=== PATIENT | female | born 1950 | race Caucasian/White ===

== ENCOUNTER 2023-09-05 00:16 | Emergency (ER) | payer MEDICARE, OTHER ==
[2023-09-05] MEDS ORDERED: SODIUM CHLORIDE 0.9% 1,000 ML IV STA (00:47)
[2023-09-05] MEDS ORDERED: ONDANSETRON ODT 4 MG TABLET TL STA (00:47)
[2023-09-05 01:01] LABS: BASOPHILS # (AUTO) 0.1 10^3/uL (0.0-0.1); BASOPHILS % (AUTO) 0.5 %; EOSINOPHILS % (AUTO) 0.1 %; HCT - HEMATOCRIT 42.9 % (37.0-47.0); HGB - HEMOGLOBIN 14.8 g/dL (12.0-16.0); LYMPHOCYTES % (AUTO) 11.1 %; MEAN CORPUSCULAR HEMOGLOBIN 31.8 pg (27.0-31.0); MEAN CORPUSCULAR HGB CONC 34.5 g/dL (32.0-36.0); MEAN CORPUSCULAR VOLUME 92.3 fL (81.0-99.0); MONOCYTES # (AUTO) 0.9 10^3/uL (0.0-1.0); MONOCYTES % (AUTO) 4.9 %; NEUTROPHILS # (AUTO) 15.3 10^3/uL (1.5-6.6); PLT - PLATELET COUNT 270 10^3/uL (130-450); RED BLOOD COUNT 4.65 10^6/uL (4.20-5.40); RED CELL DISTRIBUTION WIDTH 11.5 % (12.0-15.0); WHITE BLOOD COUNT 18.4 x10^3/uL (4.8-10.8)
[2023-09-05] MEDS: fentaNYL 100 MCG/2 ML VIAL IVP PRN ×2 (01:02→03:33)
--- NOTE | 2023-09-05 01:05 | XRAY Report ---
PROCEDURE: Chest 1 View X-Ray INDICATIONS: Chest pain TECHNIQUE: One view of the chest was acquired. COMPARISON: None. FINDINGS: Surgical changes and devices: None. Lungs and pleura: No pleural effusions or pneumothorax. Lungs are clear. Mediastinum: Mediastinal contours appear normal. Heart size is mildly enlarged. Bones and chest wall: No suspicious bony lesions. Overlying soft tissues appear unremarkable. IMPRESSION: No acute cardiopulmonary process. Reviewed by: Indu Oglesby MD on 09/05/2023 1:03 AM [facility] Approved by: Indu Oglesby MD on 09/05/2023 1:03 AM [facility] Station ID: [id number]
[2023-09-05 01:24] LABS: ALBUMIN 5.2 g/dL (3.2-5.5); BILIRUBIN,TOTAL 1.1 mg/dL (0.2-1.0); CALCIUM 10.1 mg/dL (8.5-10.3); CREATININE 0.8 mg/dL (0.6-1.3); POTASSIUM 3.7 mmol/L (3.5-4.5); TOTAL PROTEIN 7.8 g/dL (6.4-8.9)
[2023-09-05 02:07] LABS: TROPONIN I HIGH SENSITIVITY 4.7 ng/L (2.3-14.8)
[2023-09-05 02:45] LABS: BILIRUBIN,URINE NEGATIVE (NEGATIVE); GLUCOSE, URINE (UA) NEGATIVE (NEGATIVE); KETONES,URINE (UA) 15 mg/dL (NEGATIVE); LEUKOCYTE ESTERASE, URINE NEGATIVE (NEGATIVE); NITRITE,URINE NEGATIVE (NEGATIVE); OCCULT BLOOD,URINE NEGATIVE (NEGATIVE); PROTEIN,URINE NEGATIVE (NEGATIVE); UROBILINOGEN,URINE 0.2 (NORMAL) E.U./dL (NORMAL)
[2023-09-05 02:48] LABS: CLARITY,URINE CLEAR (CLEAR)
[2023-09-05] MEDS ORDERED: ONDANSETRON 4 MG/2 ML VIAL IVP STA (02:54)
--- NOTE | 2023-09-05 03:02 | ED Physician Documentation ---
History of Present Illness - Stated complaint Stated Complaint: NAUSEA/ABD PX - Chief complaint Chief Complaint: Cardiac - Additonal information Additional information: Patient 73-year-old female presenting to the emergency department with chest and epigastric pain. Began acutely at approximately noon today. Denies episodes of similar pain. Denies chronic medical issues. Pain associated with nausea without vomiting. Attempted to relieve pain at home by taking Pepto-Bismol and baking soda without relief. Past surgical history positive for hysterectomy. Reports allergy to IV contrast. Does not take prescription medications. Review of Systems Constitutional: denies: Fever Eyes: denies: Loss of vision Ears: denies: Loss of hearing Nose: denies: Rhinorrhea / runny nose Throat: denies: Dental pain / toothache Cardiac: reports: Chest pain / pressure. denies: Palpitations, Pedal edema Respiratory: denies: Dyspnea GI: reports: Abdominal Pain, Nausea, Vomiting. 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 - Allergies Allergies/Adverse Reactions: Allergies Allergy/AdvReac Type Severity Reaction Status Date / Time Anesthetics - Amide Type - AdvReac Unknown Verified 09/05/23 00:20 Select A [Anesthetics - Amide Type] - Social History Does the pt smoke?: No Smoking Status: Never smoker Does the pt drink ETOH?: No - Immunizations Immunizations: No immun - POLST Patient has POLST: No PD ED PE NORMAL - Vitals Vital signs reviewed: Yes (wnl) - General General: Alert and oriented X 3, Well developed/nourished - HEENT HEENT: Atraumatic - Neck Neck: Supple, no meningeal sign - Cardiac Cardiac: RRR - Respiratory Respiratory: No respiratory distress - Abdomen Abdomen: Normal bowel sounds, Other (Epigastric tenderness without guarding, rebound, rigidity.) - Female Female : Deferred - Rectal Rectal: Deferred - Back Back: No CVA TTP - Derm Derm: Normal color - Extremities Extremities: No deformity - Neuro Neuro: Alert and oriented X 3, manager 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 2-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, No motor deficit, No sensory deficit, Normal speech Results - Vitals Vitals: Vital Signs - 24 hr 09/05/23 09/05/23 09/05/23 00:20 00:52 01:22 Temperature 36.5 C Heart Rate 64 77 70 Respiratory 16 17 17 Rate Blood Pressure 170/88 H 186/95 H O2 Saturation 94 98 95 09/05/23 09/05/23 09/05/23 02:00 03:00 03:30 Temperature Heart Rate 72 69 71 Respiratory 17 13 Rate Blood Pressure 178/99 H 181/82 H O2 Saturation 95 99 95 09/05/23 09/05/23 09/05/23 04:00 04:30 05:00 Temperature Heart Rate 66 72 66 Respiratory 16 13 13 Rate Blood Pressure 178/77 H 193/94 H 158/95 H O2 Saturation 98 97 94 09/05/23 09/05/23 09/05/23 05:30 06:00 06:30 Temperature Heart Rate 74 69 69 Respiratory 14 15 14 Rate Blood Pressure 163/86 H 157/92 H 164/84 H O2 Saturation 97 95 95 Oxygen O2 Source Room air - EKG (time done) 0037 EKG releavant findings:: EKG personally interpreted by author of this note. Relevant findings are: Sinus rhythm with rate 60 bpm. Normal axis. Normal RI, QRS, QTc intervals. No ST segment elevations or T wave inversions. - Labs Labs: Laboratory Tests 09/05/23 09/05/23 09/05/23 00:50 00:50 00:50 WBC 18.4 H RBC 4.65 Hgb 14.8 Hct 42.9 MCV 92.3 MCH 31.8 H MCHC 34.5 RDW 11.5 L Plt Count 270 MPV 10.0 Neut # (Auto) 15.3 H Lymph # (Auto) 2.0 Cocke # (Auto) 0.9 Eos # (Auto) 0.0 Baso # (Auto) 0.1 Absolute Nucleated RBC 0.00 Nucleated RBC % 0.0 Sodium 136 Potassium 3.7 Chloride 96 L Carbon Dioxide 29 Anion Gap 11.0 BUN 13 Creatinine 0.8 Estimated GFR (MDRD) 71 L Glucose 137 H Lactic Acid 1.7 Calcium 10.1 Total Bilirubin 1.1 H AST 18 ALT 21 Alkaline Phosphatase 96 Troponin I High Sens 4.7 Total Protein 7.8 Albumin 5.2 Globulin 2.6 Albumin/Globulin Ratio 2.0 Lipase 17 Urine Color Urine Clarity Urine pH Ur Specific [place] Urine Protein Urine Glucose (UA) Urine Ketones Urine Occult Blood Urine Nitrite Urine Bilirubin Urine Urobilinogen Ur Leukocyte Esterase Ur Microscopic Review 09/05/23 02:28 WBC RBC Hgb Hct MCV MCH MCHC RDW Plt Count MPV Neut # (Auto) Lymph # (Auto) [place] # (Auto) Eos # (Auto) Baso # (Auto) Absolute Nucleated RBC Nucleated RBC % Sodium Potassium Chloride Carbon Dioxide Anion Gap BUN Creatinine Estimated GFR (MDRD) Glucose Lactic Acid Calcium Total Bilirubin AST ALT Alkaline Phosphatase Troponin I High Sens Total Protein Albumin Globulin Albumin/Globulin Ratio Lipase Urine Color YELLOW Urine Clarity CLEAR Urine pH 7.0 Ur Specific [place] 1.015 Urine Protein NEGATIVE Urine Glucose (UA) NEGATIVE Urine Ketones 15 H Urine Occult Blood NEGATIVE Urine Nitrite NEGATIVE Urine Bilirubin NEGATIVE Urine Urobilinogen 0.2 (NORMAL) Ur Leukocyte Esterase NEGATIVE Ur Microscopic Review NOT INDICATED PD Medical Decision Making - ED course Complexity details: reviewed old records, reviewed results, re-evaluated patient, considered differential, d/w patient, d/w family, d/w sales consultant ED course: Patient 73-year-old female presenting to the emergency department with chief complaint abdominal pain. Afebrile, hemodynamically stable on arrival to the emergency department but demonstrating signs of great distress, actively retching with a significant amount of epigastric tenderness. No guarding, rebound, rigidity that would be suggestive of peritonitis. EKG is on above was negative for indications of acute cardiac ischemia or dysrh ythmia. Patient's high-sensitivity troponin was negative. Her lab work did demonstrate a significant leukocytosis with bandemia. No elevation in LFTs or alkaline phosphatase that would be suggestive of biliary obstruction however patient did have a very minimal elevation in total bilirubin of uncertain clinical significance. She was given multiple doses of medication for pain control here in the emergency department. Pain control was achieved after transitioning to hydromorphone. She was similarly given medication for nausea and IV hydration with some significant improvement in her symptoms. Patient did endorse for an iodine/contrast allergy and a noncontrast CT of her abdomen and pelvis was obtained. This demonstrated a distended gallbladder with multiple biliary stones. Given her white count, presenting symptoms as well as the findings of the CT scan I did order for Rocephin and Flagyl. She was monitored carefully. At this time I ordered for right upper quadrant ultrasonography. Case discussed with general surgery, Dr. Fleming who will review the ultrasound as it becomes available later on in the morning. Patient was maintained n.p.o. throughout her time in the emergency department. At this time I will be signing her out to the oncoming physician, please see their documentation for further detail. Departure - Departure Forms: PCP List
[2023-09-05] MEDS ORDERED: metroNIDAZOLE 500 MG/100 ML 500 MG/100 ML BAG IV ONE (03:21)
[2023-09-05] MEDS ORDERED: cefTRIAXone 1 GM in SODIUM CHLORIDE 0.9% MINIBAG 100 ML IV STA (03:21)
[2023-09-05] MEDS ORDERED: cefTRIAXone 1 GM VIAL ONE (04:17)
[2023-09-05] MEDS ORDERED: HYDROmorphone 1 MG/ML CARPUJECT IVP STA (04:22)
--- NOTE | 2023-09-05 08:46 | Ultrasound Report ---
PROCEDURE: Abdomen Limited INDICATIONS: RUQ/Epigastric pain TECHNIQUE: Real-time focused scanning was performed of the abdomen, with image documentation. COMPARISONS: None. FINDINGS: Liver: Liver is normal in size and heterogeneous in echotexture. Gallbladder: Multiple hyperechoic foci are noted in dependent portion of gallbladder lumen with acous tic shadowing. The largest stone measures 8 x 7 x 7 mm in size. No gallbladder wall thickening or per icholecystic fluid. No sonographic Collier's sign. Biliary ducts: Intrahepatic bile ducts are non-dilated. Extrahepatic bile duct caliber measures 4 m m. Normal is 6-7 mm or less in diameter, or 10 mm or less post-cholecystectomy. Pancreas: Visualized portions of the pancreas are sonographically normal. Right kidney: Normal in size and echotexture. Right kidney measures 9.9 cm long. No hydronephrosis o r nephrolithiasis. No solid masses. No complex renal cystic lesions which require follow-up. Aorta: Visualized aorta is normal in caliber at less than 3 cm. IVC: Intrahepatic inferior vena cava is patent. Miscellaneous: No free abdominal fluid. IMPRESSION: 1. Cholelithiasis without sonographic evidence of acute cholecystitis. No biliary ductal dilatation. 2. Heterogeneous liver parenchymal echotexture suggestive of mild hepatic steatosis. No discrete hepa tic lesion. Reviewed by: Socrates Orozco MD on 09/05/2023 8:45 AM PST Approved by: Socrates Orozco MD on 09/05/2023 8:45 AM PST Station ID: [id number]
--- NOTE | 2023-09-05 08:49 | CT Report ---
PROCEDURE: ABDOMEN/PELVIS WO INDICATIONS: Epigastric abd pain. Contrast Allergy TECHNIQUE: A CT scan of the abdomen and pelvis was performed without the use of intravenous contrast. Images we re recorded and evaluated at appropriate window settings. Reformats: coronal and sagittal. For radiat ion dose reduction, the following was used: automated exposure control, adjustment of mA and/or kV ac cording to patient size. COMPARISON: None. FINDINGS: Image quality: Excellent. Lung bases and heart: Unremarkable. Liver: No solid mass. Gallbladder and biliary tree: Calcified stones are noted within gallbladder lumen. Gallbladder is mil dly distended. No significant gallbladder wall thickening or pericholecystic fluid. No intra or extra hepatic biliary ductal dilatation. Spleen: No splenomegaly. Pancreas: No pancreatic ductal dilation. Adrenals: No adrenal nodule. Kidneys and ureters: No hydronephrosis. No renal cystic lesion which requires follow up. No solid mas s. Simple left renal cyst is noted and measures 3.7 x 3.9 cm in size. Bowel and peritoneum: No bowel distension. No pathologic free fluid. No peritoneal free air or absces s collection. Lymph nodes: No central or retroperitoneal adenopathy. Vessels: No infrarenal aortic aneurysm. PELVIS Reproductive organs: Unremarkable. Bladder: No wall thickness, accounting for underdistention. Pelvic lymph nodes: No pelvic adenopathy by size criteria. Bones: No aggressive osseous abnormality. Other: No significant ventral or inguinal hernia. IMPRESSION: 1. Cholelithiasis with mild gallbladder wall distention. No CT evidence of acute cholecystitis. No bi liary ductal dilatation. If indicated, ultrasound of abdomen can be done for further evaluation of th e gallbladder. 2. Left renal cysts as above. No renal stones or hydronephrosis. 3. No bowel obstruction or abnormal bowel wall thickening. No free fluid or free air. No discrepancies from pulmonary region. Reviewed by: Socrates Orozco MD on 09/05/2023 8:47 AM PST Approved by: Socrates Orozco MD on 09/05/2023 8:47 AM PST Station ID: [id number]
--- NOTE | 2023-09-05 11:58 | CONSULTATION NOTE ---
Referring Provider Consult Date: 09/05/23 Chief Complaint - Chief Complaint Chief Complaint: few days of not feeling well followed by severe epigastric pain History of Present Illness - History Obtained From Records Reviewed: yes History obtained from: pt Exam Limitations: none - History of Present Illness HPI Comment/Other: generalized not feeling well for a few days. late last pm developed severe epigastric pain going to the back. felt like a ball. never had similar pain. was throwing up at the time. symptoms have since completely resolved and she feels well. she is and feels up to going home. 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 - POLST Patient has POLST: No Meds/Allgy - Allergies Allergies/Adverse Reactions: Allergies Allergy/AdvReac Type Severity Reaction Status Date / Time Anesthetics - Amide Type - AdvReac Unknown Verified 09/05/23 00:20 Select A [Anesthetics - Amide Type] Review of Systems - Other Findings Other Findings: 10 pt ros as above otherwise unremarkable Exam - Vital Signs Reviewed Vital Signs: Yes Vital Signs: Vital Signs x48h Pulse Resp BP Pulse Ox 09/05/23 07:00 68 14 146/97 H 94 09/05/23 06:30 69 14 164/84 H 95 09/05/23 06:00 69 15 157/92 H 95 09/05/23 05:30 74 14 163/86 H 97 09/05/23 05:00 66 13 158/95 H 94 09/05/23 04:30 72 13 193/94 H 97 09/05/23 04:00 66 16 178/77 H 98 - Physical Exam General Appearance: positive: No acute distress, Alert Eyes Bilateral: positive: PERRL, EOMI, No scleral icterus ENT: positive: No signs of dehydration Neck: positive: No JVD, Trachea midline Respiratory: positive: No respiratory distress Cardiovascular: positive: Regular rate & rhythm Abdomen: positive: Non-tender, No distention Neurologic/Psychiatric: positive: Oriented x3 Conclusion and Plan - Lab Results Laboratory Results 09/05/23 02:28: Urine Color YELLOW, Urine Clarity CLEAR, Urine pH 7.0, Ur Specific [place] 1.015, Urine Protein NEGATIVE, Urine Glucose (UA) NEGATIVE, Urine Ketones 15 H, Urine Occult Blood NEGATIVE, Urine Nitrite NEGATIVE, Urine Bilirubin NEGATIVE, Urine Urobilinogen 0.2 (NORMAL), Ur Leukocyte Esterase NEGATIVE, Ur Microscopic Review NOT INDICATED 09/05/23 00:50: Lactic Acid 1.7 09/05/23 00:50: Sodium 136, Potassium 3.7, Chloride 96 L, Carbon Dioxide 29, Anion Gap 11.0, BUN 13, Creatinine 0.8, Estimated GFR (MDRD) 71 L, Glucose 137 H, Calcium 10.1, Total Bilirubin 1.1 H, AST 18, ALT 21, Alkaline Phosphatase 96, Troponin I High Sens 4.7, Total Protein 7.8, Albumin 5.2, Globulin 2.6, Albumin/Globulin Ratio 2.0, Lipase 17 09/05/23 00:50: WBC 18.4 H, RBC 4.65, Hgb 14.8, Hct 42.9, MCV 92.3, MCH 31.8 H, MCHC 34.5, RDW 11.5 L, Plt Count 270, MPV 10.0, Neut # (Auto) 15.3 H, Lymph # (Auto) 2.0, [place] # (Auto) 0.9, Eos # (Auto) 0.0, Baso # (Auto) 0.1, Absolute Nucleated RBC 0.00, Nucleated RBC % 0.0 - Diagnostic Imaging Results Diagnostic Imaging Results: positive: Read independently (gallstone obstructing the gallbladder at time of ct. no gallbladder obstruction on later ultrasound. likely gallstone floated upwards out of the neck of the gallbladder. no significant inflammation gallbladder on ct or US) - Diagnosis Diagnosis: gallstones and severe attack gallbladder pain - Consultation Note Consultation Note: symptoms resolved. recommend clears and if tolerating well home on low fat diet follow up in surgery office next available [phone] antibiotics probably not necessary. she may call the office if having pain, fevers, nausea, etc
--- NOTE | 2023-09-05 12:39 | ED Physician Documentation ---
ED Addendum - Addendum Addendum: 09/05/23 12:25 73-year-old female with right upper quadrant abdominal pain evaluated by Dr. Stout and Dr. Fleming. 09/05/23 12:39 CT ab/pel with: Impression: Cholelithiasis with mild gallbladder wall distention. No CT evidence of acute cholecystitis. No biliary ductal dilation. If indicated, ultrasound can be done for further evaluation of the gallbladder. Left renal cysts are as above. No renal stones or hydronephrosis. No bowel obstruction or abdominal wall thickening. No free fluid or free air no discrepancies from preliminary read GB ultrasound: Impression: 1. Cholelithiasis without sonographic evidence of acute cholecystitis. No biliary ductal dilation. Heterogeneous liver parenchyma echotexture suggestive of mild hepatic steatosis. No discrete hepatic lesion. 09/05/23 19:17 09/05/23 19:18 09/05/23 19:19 Dr. Fleming did evaluate the patient and he will follow-up with the patient in his clinic for elective surgery. Dr. Fleming indicated addition of antibiotics was likely not necessary. Patient is comfortable with her disposition and she is encouraged to return to the emergency department if she has persistence of symptoms or develops new symptoms. She is encouraged to use a fat-free diet and to follow-up with the surgeon as indicated. Impression: Cholelithiasis without acute cholecystitis and without obstruction or gangrene. Plan: Patient will follow-up with Dr. Fleming as an outpatient.
[2023-09-05 12:56] VITALS: BP 140/72; O2SAT 96
== END 2023-09-05 13:01 | disposition home or self-care (01) ==
LOC: ED 00:16
DX: K80.20 Calculus of gallbladder without cholecystitis without obstruction (principal)
CPT/HCPCS: 36415; 71045; 74176; 76705; 80053; 81003; 83605; 83690; 84484; 85025; 93005; 96365; 96367; 96375; 99285; J1170; Q0162; 81001

== ENCOUNTER 2024-03-17 10:52 | Emergency (ER) | payer MEDICARE, OTHER ==
[2024-03-17 11:08] VITALS: BP 155/73; O2SAT 97
--- NOTE | 2024-03-17 12:09 | ED Physician Documentation ---
PD HPI UPPER EXT INJURY - Stated complaint Stated Complaint: LT HAND FINGER LAC - Chief complaint Chief Complaint: Laceration - History obtained from History obtained from: Patient - Additonal information Additional information: Lxtjg-[id number] woman with unknown tetanus status cut her left middle finger with a knife at home just prior to arrival. Of note she has a history of anesthetic allergy, but says she has had lidocaine at the dentist office without issue. 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 - Present Medications Home Medications: Ambulatory Orders Medication Instructions Recorded Confirmed Bacitracin Zinc Oint 1 applic TOP BID #1 each 03/17/24 HYDROcod/ACETAM 5/325 [Hines 5/325] 1 - 2 tab PO Q6H PRN #10 tablet 03/17/24 - Allergies Allergies/Adverse Reactions: Allergies Allergy/AdvReac Type Severity Reaction Status Date / Time Anesthetics - Amide Type - AdvReac Unknown Verified 03/17/24 11:04 Select A [Anesthetics - Amide Type] - Social History Does the pt smoke?: No Smoking Status: Never smoker Does the pt drink ETOH?: No - Immunizations Immunizations: No immun - POLST Patient has POLST: No PD ED PE NORMAL - Vitals Vital signs reviewed: Yes - General General: Alert and oriented X 3, No acute distress - Extremities Extremities: Other (On the radial side of the tip of the left middle finger there is a near complete amputation measuring 2 cm involving the distal lateral nail with a flap keeping it attached distally.) - Neuro Neuro: Alert and oriented X 3, Normal speech Results - Vitals Vitals: Vital Signs - 24 hr 03/17/24 11:01 Temperature 36.5 C Heart Rate 74 Respiratory 18 Rate Blood Pressure 155/73 H O2 Saturation 97 Oxygen O2 Source Room air Procedures - Laceration (location) L middle finger Length in cm: 2 Wound type: Into subcut fat, Clean Neurovascular status: Sensory intact Anesthesia: Lidocaine 1%, With bicarb Wound preparation: Irrigated copiously NS, Extensive undermining (The involved part of the nail was removed using blunt dissection) Skin layer closure: Nylon, Interrupted, Size #-0 - enter number (5-0), Sutures - enter # (10) Other: Patient tolerated well, No complications, Neurovascular intact, Tetanus booster given Departure - Departure Disposition: Home, Self Care Clinical Impression: Laceration of left middle finger with damage to nail Qualifiers: Encounter type: initial encounter Foreign body presence: without foreign body Qualified Code(s): S61.313A - Laceration without foreign body of left middle finger with damage to nail, initial encounter Condition: Good Record reviewed to determine appropriate education?: Yes Instructions: ED Laceration All Prescriptions: Bacitracin Zinc Oint 1 applic TOP BID #1 each HYDROcod/ACETAM 5/325 [Hines 5/325] 1 - 2 tab PO Q6H PRN #10 tablet PRN Reason: Pain Comments: Come back for any signs of infection which would include: Redness, swelling, drainage, increased pain, or fevers. You can wash it soap and water. Keep it covered and moist with bacitracin ointme nt which is available over the counter; avoid neosporin. Follow-up with your physician in about 14 days for suture removal. I am prescribing a short course of narcotic pain medication for you. These are potentially dangerous and addictive medications that should be used carefully. These medications may constipate you. Take an jzwe-ayn-iptlgxi stool softener (docusate) twice daily with plenty of water while taking these medications. If you go 24 hours without a bowel movement, take [id number] miralax, per package instructions. Do not drink or drive while taking these medications. If you received narcotic or sedating medications while in the emergency department, do not drive for 24 hours. Store this medication in a safe, secure place and out of reach of children. It is a violation of federal law to give or sell this medication to another person or to use in a manner other than prescribed. The ED will not refill narcotic prescriptions, including prescriptions lost or stolen. To dispose of unwanted medications: 1. [facility] provides a drop box for medication in pill form only (no liquids) 8:00 am to 4:30 p.m. Thursday-Thursday in the lobby of the [facility], [address] [place] [address]. Empty pills into ziplock bag before disposal. Call [phone] for information. 2.[employer] is a free service available to all [facility] residents. Go to [email or web address]/ Note that many narcotic pain relievers also contain Tylenol/acetaminophen. Please ensure that your total dose of acetaminophen from all sources does not exceed 3 g (3000 mg) per day. Forms: PCP List
[2024-03-17] MEDS: TETANUS/DIPHTHERIA/PERTUSSIS 0.5 ML SYRINGE IM ONE (12:34)
[2024-03-17] MEDS: BUFFERED LIDOCAINE 10 ML SYRINGE SUBQ STA (12:34)
== END 2024-03-17 12:54 | disposition home or self-care (01) ==
LOC: ED 10:52
DX: S61.313A Laceration without foreign body of left middle finger with damage to nail, initial encounter (principal); W26.0XXA Contact with knife, initial encounter; Y92.009 Unspecified place in unspecified non-institutional (private) residence as the place of occurrence of the external cause
CPT/HCPCS: 12001; 90471; 99283

== ENCOUNTER 2024-06-27 14:22 | Outpatient (CLI) | payer MEDICARE, OTHER ==
[2024-06-27 14:45] LABS: BASOPHILS # (AUTO) 0.1 10^3/uL (0.0-0.1); EOSINOPHILS # (AUTO) 0.1 10^3/uL (0.0-0.7); EOSINOPHILS % (AUTO) 1.3 %; HCT - HEMATOCRIT 43.9 % (37.0-47.0); HGB - HEMOGLOBIN 14.9 g/dL (12.0-16.0); LYMPHOCYTES # (AUTO) 2.5 10^3/uL (1.5-3.5); LYMPHOCYTES % (AUTO) 32.4 %; MEAN CORPUSCULAR HEMOGLOBIN 31.8 pg (27.0-31.0); MEAN CORPUSCULAR HGB CONC 33.9 g/dL (32.0-36.0); MEAN CORPUSCULAR VOLUME 93.8 fL (81.0-99.0); MEAN PLATELET VOLUME 10.5 fL (7.9-10.8); MONOCYTES # (AUTO) 0.6 10^3/uL (0.0-1.0); MONOCYTES % (AUTO) 7.8 %; NEUTROPHILS # (AUTO) 4.4 10^3/uL (1.5-6.6); NEUTROPHILS % (AUTO) 57.4 %; PLT - PLATELET COUNT 242 10^3/uL (130-450); RED BLOOD COUNT 4.68 10^6/uL (4.20-5.40); RED CELL DISTRIBUTION WIDTH 11.8 % (12.0-15.0); WHITE BLOOD COUNT 7.7 x10^3/uL (4.8-10.8)
[2024-06-27 15:12] LABS: THYROID STIMULATING HORMONE 2.92 uIU/mL (0.34-5.60)
[2024-06-27 15:16] LABS: ALBUMIN 4.6 g/dL (3.2-5.5); ALKALINE PHOSPHATASE 86 IU/L (42-121); ALT ALANINE AMINOTRANSFERASE 16 IU/L (10-60); AST ASPARTATE AMINOTRANSFERASE 16 IU/L (10-42); BILIRUBIN,TOTAL 1.3 mg/dL (0.2-1.0); BUN - BLOOD UREA NITROGEN 21 mg/dL (6-20); CALCIUM 9.4 mg/dL (8.5-10.3); CARBON DIOXIDE - CO2 28 mmol/L (21-32); CHLORIDE 103 mmol/L (101-111); CHOL/HDL RATIO 5.3 (<4.4); CHOLESTEROL 266 mg/dL; CREATININE 0.9 mg/dL (0.6-1.3); GFR - MDRD 62 (>89); GLUCOSE 95 mg/dL (74-104); HDL CHOLESTEROL 50 mg/dL; LDL CHOLESTEROL,CALCULATED 183 mg/dL; LDL/HDL RATIO 3.7 (<4.4); POTASSIUM 4.6 mmol/L (3.5-4.5); SODIUM 138 mmol/L (135-145); TOTAL PROTEIN 6.9 g/dL (6.4-8.9); TRIGLYCERIDES 166 mg/dL; VLDL CHOLESTEROL 33 mg/dL
== END 2024-06-27 14:23 | disposition home or self-care (01) ==
LOC: LAB 14:22
PROVIDERS: ATTEND Nurse Practitioner Family
DX: R19.7 Diarrhea, unspecified (principal); E78.2 Mixed hyperlipidemia; A04.1 Enterotoxigenic Escherichia coli infection
CPT/HCPCS: 36415; 80053; 80061; 83721; 84443; 85025

== ENCOUNTER 2024-06-30 15:33 | Outpatient (CLI) | payer MEDICARE, OTHER ==
--- NOTE | 2024-07-01 13:36 | XRAY Report ---
PROCEDURE: Hand 1-2V LT INDICATIONS: L HAND PAIN TECHNIQUE: 3 view(s) of the hand(s) acquired. COMPARISON: None FINDINGS: Bones: No fractures or dislocations. No suspicious bony lesions. Mild arthritic changes noted in th e second through fourth DIP. Mild generalized decreased mineralization. Soft tissues: No suspicious soft tissue calcifications. IMPRESSION: Mild DIP osteoarthritis. Osteopenia, mild Reviewed by: Santiago Anne MD on 07/01/2024 12:34 PM [facility] Approved by: Santiago Anne MD on 07/01/2024 12:34 PM [facility] Station ID: [id number]
== END 2024-06-30 15:34 | disposition home or self-care (01) ==
LOC: DI 15:33
PROVIDERS: ATTEND Nurse Practitioner Family
DX: M19.042 Primary osteoarthritis, left hand (principal); M85.842 Other specified disorders of bone density and structure, left hand